=== PATIENT | male | born 1990 | race Caucasian/White ===

== ENCOUNTER 2017-12-04 15:01 | Emergency (ER) | payer OTHER ==
[2017-12-04 15:07] VITALS: BP 161/91
--- NOTE | 2017-12-04 16:11 | EDPHY ---
H & P Smoking Status: Never smoked Time Seen by Provider: 12/04/17 15:12 HPI/ROS: CHIEF COMPLAINT: Chin laceration HISTORY OF PRESENT ILLNESS: Patient is a 27-year-old male with no significant past medical history who states that approximately 2 hr ago he was bending backwards doing a stretch in the when he came forward he lost his balance and tripped over his own foot and fell onto his chin he. There was no loss consciousness. Denies any drug or alcohol intoxication. Denies any neck pain or head injury. Denies any other associated injuries. Takes no prescribed medication. ROS As detailed in HPI (Jace Miller) Physical Exam: General: Alert and oriented. Nontoxic appearing. No acute distress HEENT: Pupils PERRLA. No oral lesions. No dental injuries. Normal dental alignment. Cardiopulmonary: Regular rate and rhythm. No lower extremity edema Skin: [place] warm and dry. 1.5 cm horizontal skin laceration. No foreign body. Muscle skeletal: Moving all 4 extremities. Equal strength in upper extremities and lower extremities. Ambulatory. (Jace Miller) Constitutional: Initial Vital Signs Temperature (C) 37 C 12/04/17 15:04 Heart Rate 117 H 12/04/17 15:04 Respiratory Rate 18 12/04/17 15:04 Blood Pressure 161/91 H 12/04/17 15:04 O2 Sat (%) 97 12/04/17 15:04 O2 Delivery Mode Room Air Allergies/Adverse Reactions: No Known Allergies Allergy (Unverified 12/04/17 15:07) Home Medications: Medication Instructions Recorded NK [No Known Home Meds] 12/04/17 Medical Decision Making Procedures: Procedure: Laceration repair. Verbal consent was obtained from the patient. The 1.5 cm laceration on the chin was anesthetized in the usual fashion. The wound was irrigated, draped and explored to its base. There were no deep structures involved. No tendon injury was identified. The wound was repaired with 6-0 nylon. Three sutures were placed. The wound repair was well approximated. The procedure was performed by myself. (Jace Miller) ED Course/Re-evaluation: 27-year-old male here with trip and ground level fall resulting in chin laceration. Suture repair as detailed below. Showed no signs of dental injury , closed head injury, cervical spine injury. He was alert and oriented and in no acute distress at time of discharge. (Jace Miller) This patient was evaluated and treatedby the physician phlebotomy lab assistant. I have reviewed the chart and agree with the documentation. I am the secondary supervising physician. (Giulia Bonner) Differential Diagnosis: Foreign body, mandible fracture, dental injury, cervical spine injury (Jace Miller) Departure - Departure Disposition: Home, Routine, Self-Care Clinical Impression: Laceration of chin Condition: Good Instructions: Laceration (ED) Additional Instructions: Follow-up in 5 days for suture removed Referrals: NONE *PRIMARY CARE P,. [Primary Care Provider] - As per Instructions [facility],. [Clinic] - As per Instructions
== END 2017-12-04 16:48 | disposition home or self-care (01) ==
PROC: 0HQ1XZZ Repair Face Skin, External Approach (ICD-10-PCS; principal; 2017-12-04)
DX: S01.81XA Laceration without foreign body of other part of head, initial encounter (principal); W01.0XXA Fall on same level from slipping, tripping and stumbling without subsequent striking against object, initial encounter; Y93.B9 Activity, other involving muscle strengthening exercises